=== PATIENT | female | born 1960 | race Caucasian/White ===

== ENCOUNTER → 2018-11-11 15:11 | Outpatient (CLI) | payer OTHER, SELFPAY ==
--- NOTE | 2018-11-11 15:24 | MM_ITS ---
PROCEDURE: MM DIG SCREENING MAMM BI W/CAD Patient Age:58Y CLINICAL INDICATION: SCREENING wall routine screening mammogram. No hormones but no new complaints. 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 R2 CAD reviewed. Additional axillary CC view bilateral FINDINGS: Dense breast tissue seen filling the central cone of breast bilaterally. Mammography is of decreased sensitivity within areas of dense tissue and with the dense slight heterogeneous fibroglandular tissue as seen here at central breast . However no new areas of concern are identified. No dominant or suspicious mass. No suspicious calcifications. If any palpable areas arise ultrasound could be useful complement/augment to mammography particularly in areas of increased breast density. Bilateral follow-up 1 year will be adequate and recommended IMPRESSION: Overall stable mammogram. No new areas of significant concern Dense breasts decrease sensitivity of mammography, but no new areas of significant concern identified. Follow-up in 1 year recommended BI-RAD Category: 2 Benign Finding(s) FOLLOW-UP: 1YR 1 Year Follow-up (A letter has been sent to the patient regarding results of the study.) Dictated by: Jeison Thompson MD 11/16/2018 15:22 Electronically signed by Jeison Thompson MD in [place] 11/16/2018 15:22
--- NOTE | 2018-11-11 15:25 | US_ITS ---
PROCEDURE: US THYROID CLINICAL INDICATION: THYROMEGLY COMPARISON: No exams were available for comparison FINDINGS: Right lobe: 1.1 x 3.7 x 1.0 centimetres. There are no nodules on the right side. Left lobe: In 0.9 x 3.2 x 1.1 centimeter. There are no nodules on the left side. Isthmus: 3.2 millimeters. Additional findings: The echogenic appearance of the thyroid tissue is normal. IMPRESSION: Normal exam. Dictated by: eHnok Hernández 11/11/2018 15:51 Electronically signed by Henok Hernández in [place] 11/11/2018 15:51
== END ==
PROVIDERS: PCP Family Medicine; Visit Provider Nurse Practitioner Family
DX: Z12.31 Encounter for screening mammogram for malignant neoplasm of breast (principal); E01.0 Iodine-deficiency related diffuse (endemic) goiter
CPT/HCPCS: 76536; 77067

== ENCOUNTER → 2019-12-06 07:48 | Outpatient (CLI) | payer OTHER, SELFPAY ==
--- NOTE | 2019-12-06 07:51 | MM_ITS ---
PROCEDURE: MM DIG SCREENING MAMM BI W/CAD Digital Breast Tomosynthesis Included CLINICAL INDICATION: SCREENING There is no personal or family history of breast cancer. 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 R2 CAD reviewed. FINDINGS: Moderate fibroglandular densities are seen in the central portions of both breast and the findings are fairly symmetrical bilaterally. There are a couple of tiny benign-appearing microcalcifications right breast. There is no suspicious lesion and no suspicious microcalcifications. IMPRESSION: Moderate breast density with no suspicious lesions seen BI-RAD Category: 2 Benign Finding(s) FOLLOW-UP: 1YR 1 Year Follow-up (A letter has been sent to the patient regarding results of the study.) Dictated by: Dr. Edil Sheldon MD 12/08/2019 09:31 Dr. Edil Sheldon MD in [place] 12/08/2019 09:31
== END ==
PROVIDERS: PCP Nurse Practitioner Family; Visit Provider Nurse Practitioner Family
DX: Z12.31 Encounter for screening mammogram for malignant neoplasm of breast (principal)
CPT/HCPCS: 77063; 77067

== ENCOUNTER → 2019-12-13 09:25 | Outpatient (CLI) | payer OTHER, SELFPAY ==
--- NOTE | 2019-12-13 09:28 | XR_ITS ---
PROCEDURE: XR DEXA AXIAL SKELETON CLINICAL HISTORY: OSTEOPOROSIS COMPARISON: No exams were available for comparison FINDINGS: The right hip BMD is 0.525 with a T-score of -2.9. The left hip BMD is 0.601 with a T-score of -2.2. The lumbar spine BMD is 0.707 with a T-score of -3.1. IMPRESSION: This patient is considered osteoporotic according to the World Health Organization criteria. Fracture risk is high. Treatment is advised. Based on these results a follow-up exam is recommended in 1 year. Dictated by: João Schaefer MD 12/14/2019 07:15 João Schaefer MD in [place] 12/14/2019 07:15
== END ==
PROVIDERS: PCP Nurse Practitioner Family; Visit Provider Nurse Practitioner Family
DX: Z13.820 Encounter for screening for osteoporosis (principal); Z78.0 Asymptomatic menopausal state
CPT/HCPCS: 77080

== ENCOUNTER 2020-04-01 12:26 | Emergency (ER) | payer OTHER, SELFPAY ==
[2020-04-01 12:30] VITALS: BP 167/91; PULSE 118; RESP 20; TEMP 37; O2SAT 100; BMI 23.3
--- NOTE | 2020-04-01 12:38 | XR_ITS ---
PROCEDURE: XR WRIST LT MIN 3V Referring Doctor: Alyse Vo Patient Age:59Y CLINICAL INDICATION: FALL on April 01, 2020 Pain wrist and 4 arm COMPARISON: No exams were available for comparison FINDINGS: Acute/recent fracture of the distal radius and ulnar styloid: Somewhat comminuted fracture distal radius. The fracture primarily seen transversing the distal radius metaphysis with fracture lines extending from this to articular surface distal radius. There is dorsal tilt and slight posterior displacement of the distal radial fracture fragment with resulting deformity evident at distal radius, and wrist there is mild foreshortening of the distal radius due to the fracture as well. There is also nondisplaced fracture transversing the base of the ulnar styloid. Additional tiny corticated fragment off the tip ulnar styloid may reflect previous injury or accessory ossicle The carpals appear intact. There may be some minor degenerative changes the distal navicular but no acute fracture involving carpals. The base of the metacarpals included and intact b . Bones well mineralized IMPRESSION: Fracture distal radius and ulnar styloid: . Comminuted fracture distal radius with notable dorsal tilt and mild dorsal displacement distal radial fracture fragmenta . Nondisplaced fracture transversing base of ulnar styloid Dictated by: Jeison Thompson MD 04/01/2020 20:30 Jeison Thompson MD in [place] 04/01/2020 20:30
--- NOTE | 2020-04-01 12:58 | HMH.EDUTC ---
[facility] [place] Clinical Impression: Distal radius fracture, left Qualifiers: Encounter type: initial encounter Fracture type: closed Fracture morphology: unspecified fracture morphology Qualified Code(s): S52.502A - Unspecified fracture of the lower end of left radius, initial encounter for closed fracture Disposition: Home, Self-Care Condition on Discharge: Good Instructions: Wrist Fracture, How To Perform RICE (Rest, Ice, Compress, Elevate), Ketorolac Additional Instructions: *RICE, Rest the extremity, Ice 15-20 minutes 3-4 times daily, Compress- wear the rojas wrap as discussed as much as possible to help reduce swelling and pain, Elevate the extremity when at rest *Rojas wrap/Orthoglass splint is for support and help control swelling, Be sure that is not to tight but not to loose either but do not remove *Elevate when resting *Toradol every 8 hours as needed for pain an inflammation. If need something more can take Tylenol in between doses of Toradol to help Immediately follow up with your family doctor for new or worsening of symptoms, or no noticeable improvement over the next 3-[address] Harrison's office on Friday for appointment Return if needed Straight to ER if any life threatening symptoms Prescriptions: Ketorolac Tromethamine [Toradol 10mg tablet] 10 mg PO Q8HP PRN #15 tab PRN Reason: Moderate Pain Transmission Status: Received by [id number] Referrals: Thea Ramos APRN [Primary Care Provider] - As needed Isaiah Harrison MD [Staff Physician] - As needed (Call office on Friday for appointment) Time of Disposition: 13:18 Medical Decision Making - Timothy Inquiry Pt receiving controlled substance: No Timothy was queried for this patient: No Vital Signs: 04/01/20 12:30 04/01/20 13:10 Temperature 98.6 F 98.6 F Temperature Source Oral Pulse Rate 118 H Pulse Rate [Right Brachial] 118 H Respiratory Rate 20 20 Blood Pressure 167/91 H Blood Pressure [Right Arm] 167/91 H Blood Pressure Mean [Right Arm] 116 Blood Pressure Source [Right Arm] Automatic Cuff Blood Pressure Position [Right Arm] Sitting 02 Sat by Pulse Oximetry 100 Oxygen Delivery Method Room Air Orders (Tests/Meds): ED MEDICATIONS Discontinued Medications Generic Name Dose Route Start Last Admin Trade Name Freq PRN Reason Stop Dose Admin Ketorolac Tromethamine 30 mg 04/01/20 13:13 Ketorolac 60mg/2ml Vial IM 04/01/20 13:14 ONCE ONE ORDERS Category Date Time Status XR wrist LT min 3V Stat Exams 04/01/20 12:38 Taken - Radiology Data #1 Image(s): Wrist Image Reviewed: Yes I reviewed the patient's radiology image Distal radial fracture, ? styloid process fracture ulna - Physician Consults Physician Consulted: Hunter Time: 12:55 Reason -: Orthopedic Eval/Care Comment/Response: Spoke with Dr Harrison and he viewed xrays Advised to place patient in sugar tong splint, RICE, pain medication and have her call the office on Friday for appointment Medical Decision Narrative: Medication discussed with pharmacy Patient denies any kidney problems States that she is able to take Motrin products but had rather take Tylenol Patient give prescription for Toradol and informed that she can take Tylenol and if she needs something stronger she can take the Toradol [facility] [place] - General Stated complaint: ao @ 1215 injury to Lt wrist Time Seen by Provider: 04/01/20 12:58 Mode of Arrival: Ambulatory Source of Information: Patient Limitations: No Limitations Description of Symptoms (Recalled from Triage Doc. 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 SWELLING AND DEFORMITY NOTED HEENT Symptoms (Recalled from RN notes): No Resp Symptoms (Recalled from RN notes): No Skin Symptoms (Recalled from RN notes): No MS Symptoms (Recalled from RN notes): No Functional Status (Recalled from RN notes): WNL - History of Present Illness Provider Complaint: Patien
[2020-04-01 13:10] VITALS: BP 167/91; PULSE 118; RESP 20; TEMP 37; O2SAT 100
== END 2020-04-01 13:25 | disposition home or self-care (01) ==
PROVIDERS: Emergency Provider Nurse Practitioner; PCP Nurse Practitioner Family
DX: S52.502A Unspecified fracture of the lower end of left radius, initial encounter for closed fracture (principal); W00.0XXA Fall on same level due to ice and snow, initial encounter; Y92.89 Other specified places as the place of occurrence of the external cause; Z88.2 Allergy status to sulfonamides
CPT/HCPCS: 29125; 73110; 96372; 99203; G0463

== ENCOUNTER → 2020-04-05 12:50 | Outpatient (CLI) | payer OTHER, SELFPAY ==
[2020-04-05 13:19] LABS: Basophils # 0.1 K/mm3 (0-0.2); Basophils % 0.8 % (0.1-2.0); Eosinophils # 0.1 K/mm3 (0.0-0.4); Eosinophils % 1.4 % (0.1-12.0); Hematocrit 36.2 % (37.0-47.0); Hemoglobin 11.5 g/dL (12.2-16.2); Lymphocytes # 2.3 K/mm3 (0.7-4.5); Lymphocytes % 23.8 % (10-50); Mean Corpuscular HGB Conc 31.8 g/dL (31.8-35.4); Mean Corpuscular Hemoglobin 30.6 pg (27.0-31.2); Mean Corpuscular Volume 96.3 fl (81-99); Mean Platelet Volume 7.4 fl (7.4-10.4); Monocytes # 0.6 K/mm3 (0.1-1.0); Monocytes % 5.6 % (1.7-9.3); Neutrophils # 6.7 K/mm3 (1.8-7.8); Neutrophils % 68.4 % (37.0-80.0); Platelet Count 332 K/mm3 (142-424); Red Blood Count 3.76 M/mm3 (4.20-5.40); White Blood Count 9.7 K/mm3 (4.8-10.8)
--- NOTE | 2020-04-05 13:19 | ECG_ITS ---
APPROVED REPORT Exam: Resting ECG HR:74 bpm ECG Measurements Heart Rate 74 AXES ID 120 P 1 QRSd 86 QRS 34 QT 390 T 33 QTc 432 Conclusion Normal sinus rhythm RSR' or QR pattern in V1 suggests right ventricular conduction delay Borderline ECG Electronically signed by : Chemo Lozada, 04/05/2020 17:46:03
[2020-04-05 13:47] LABS: Chloride 103 mmol/L (98-107); Sodium 138 mmol/L (136-145)
[2020-04-05 13:48] LABS: Potassium 4.4 mmoL/L (3.5-5.1)
[2020-04-05 13:50] LABS: Alanine Aminotransferase 27 U/L (12-78); Albumin Level 4.5 g/dl (3.5-5.0); Albumin/Globulin Ratio 1.5 (1.1-1.8); Alkaline Phosphatase 96 U/L (38-126); Anion Gap 11.4 mEq/L (5-15); Aspartate Amino Transferase 34 U/L (14-36); Bilirubin,Total 1.2 mg/dl (0.2-1.3); Blood Urea Nitrogen 15 mg/dl (7-17); Carbon Dioxide 28 mmol/L (22.0-30.0); Estimated Glomerular Filt Rate 73 ml/min (>60); GFR (African American) 88 ML/MIN (>60); Total Protein,Serum 7.5 g/dl (6.3-8.2)
[2020-04-05 13:51] LABS: Calcium 9.6 mg/dl (8.4-10.2); Glucose 100 mg/dl (74-100)
[2020-04-05 14:14] LABS: Coronavirus 19 IgG Antibody Negative (Negative); Coronavirus 19 IgM Antibody Negative (Negative)
== END ==
PROVIDERS: Visit Provider Orthopaedic Surgery
DX: Z01.818 Encounter for other preprocedural examination (principal); Z20.822 Contact with and (suspected) exposure to COVID-19; S52.502A Unspecified fracture of the lower end of left radius, initial encounter for closed fracture
CPT/HCPCS: 36415; 80053; 85025; 86328; 93005

== ENCOUNTER 2020-04-06 09:41 | Day surgery (SDC) | payer OTHER, SELFPAY ==
[2020-04-05 09:28] VITALS: BMI 23.8
[2020-04-06] VITALS (12 sets, daily range): BP systolic 124–160; BP diastolic 64–79; PULSE 77–95; RESP 15–18; TEMP 36.4–38; O2SAT 97–100
--- NOTE | 2020-04-06 10:55 | HMH.ANESCL ---
[facility] Anesthesia Checklist - Structural Data Admitted From: Home Planned Operative Procedure/s: orif l wrist Consent for Planned Operative Procedure(s) Verified: Yes - Additional verifications Anesthesia Reactions: No Hx Blood Transfusions: No Blood Transfusion Reaction: No - Airway Assessment C-Spine Mobility Assessed: Yes TMJ Mobility Assessed: Yes Dentition: Good Dentition - Neurological Assessment Level of Consciousness: Awake, Alert, Appropriate - Anesthesia Plan Anesthesia Risk discussed: Yes Anesthesia Plan: Verified ASA Class: I Anesthesia Type: General w/block - Preoperative Comments Pre-Operative Comments: explained supraclav block, pt agrees to proceed w block/general [facility] History I have reviewed the patient's past medical history: Yes Medical History: Reports:: Osteoporosis Denies:: Cancer, Diabetes Mellitus Type 1, Diabetes Mellitus Type 2, MRSA, Seizures *Have you ever received a pneumonia vaccine?: No *Have you received a flu vaccine this season?: Yes Other Medical History: Reports: Arthritis, Osteoporosis. Denies: Blood Transfusion Reaction Anesthesia experience/problems:: none Other Surgeries: Yes: No Previous Surgery Amputation: No Fractures: No - *Social History Last grade of school completed: High school graduate Smoking Status: Never smoker Alcohol Intake: never Substance Use Type: denies use *Occupational Status:: retired *Travel in the last 8 weeks: None Family Hx:: No significant family history
--- NOTE | 2020-04-06 13:25 | XR_ITS ---
PROCEDURE: XR WRIST LT 2V CLINICAL INDICATION: LT WRIST ORIF COMPARISON: No exams were available for comparison FINDINGS: Fluoroscopy time: 57 seconds Multiple images are submitted during ORIF the distal radial fracture. Volar bone plate is placed with multiple cortical screws with good alignment of the fracture fragments. IMPRESSION: Status post ORIF distal radial fracture with C-arm guidance Dictated by: João Schaefer MD 04/06/2020 15:27 João Schaefer MD in [place] 04/06/2020 15:27
--- NOTE | 2020-04-06 14:04 | P.PN_ITS ---
[facility] Anesthesia Record Part I Intake, IV Amount: 950 Estimated blood loss (mL): 5 Urine output (mL): 0 Blood Products used (#): none Blood Pressure: 124/70 SaO2: 99 Pulse Rate: 78 Respiratory Rate: 18 Temperature: 97.6 F Patient is:: Awake Stable to PACU at:: 14:05
--- NOTE | 2020-04-06 14:58 | HMH.ANESII ---
[facility] Anesthesia Record Part II Discharge Time: 14:34 Destination: Surgical Day Care (OP Surgery) PACU nurse assessment reviewed?: Yes Patient Condition:: Good Anesthesia Complications:: None Swallowing reflex intact?: Yes Cyanosis?: No Blood Pressure: 140/72 Pulse Rate: 85 Temperature: 97.8 F Mental Status: Alert & Oriented Pain level:: 0 Nausea and/or vomitting:: None Intake, IV Amount: 0
--- NOTE | 2020-04-06 15:55 | HMH.OPNOTE ---
Date of procedure: 04/06/20 Pre-op Diagnosis:: Closed, comminuted, displaced intra-articular fracture, LEFT distal radius Post-op Diagnosis:: Same Procedure performed:: Open reduction and internal fixation LEFT distal radius with volar locking plate. Surgeon:: Isaiah Harrison MD Heating Unit Mechanic(s):: Lydia Wolf SENIOR SOFTWARE TESTER:: Other (Agus Goyal) Anesthesia: GETA, regional (Supraclavicular nerve block) Estimated blood loss (mL): 5 Clinical Note:: Patient is a 59-year-old right-hand dominant female who sustained a closed displaced intra-articular fracture of the left distal radius when she slipped on ice and fell onto the outstretched left hand about 5 days ago. Evaluation including x-rays of the left wrist showed a closed, comminuted and displaced intra-articular fracture of the left distal radius. Following a detailed discussion with the patient and her sister about the management options including both nonsurgical and surgical, patient elected to proceed with surgical remediation. Please refer to my office note for full details. Operative findings:: Displaced, comminuted and unstable intra-articular fracture of the left distal radius as noted on the preoperative x-rays. Bone quality is good. Operative note:: After appropriate workup, the patient was brought to the hospital for surgery. On the day of surgery, I met the patient in the preoperative area and again discussed the details of the procedure, risks and benefits, alternatives and the expected outcomes. The complications discussed include but are not limited to infection, bleeding, injury to nerves, tendons and blood vessels, incisional scar (cosmesis), DVT/PE, malunion, nonunion/delayed union, loss of position, re-fracture, wrist/finger stiffness, CRPS (complex regional pain syndrome- pain, sensory and temperature changes, swelling and stiffness), painful/prominent hardware, loss of fixation/hardware failure, incomplete relief of pain, incomplete return of function, posttraumatic arthritis and likely need for further surgery in future and also the risks of anesthesia including heart attack, stroke, and . I have discussed how there is a small but real possibility of loss of use of the arm, loss of the limb or loss of life itself. I have also explained how additional surgery may be required if there are any complications or the fracture fails to heal. We have also discussed the postoperative pain management, recovery and rehabilitation, immobilization required, the likely need for physical therapy, the possibility of stiffness, chronic pain and we've also discussed the option of nonsurgical treatment. Patient expressed a full understanding and wished to proceed with surgery as planned. The operative site/side was marked and initialed by me. Patient understood the risks, agreed to proceed with surgery and no guarantees or assurances were given or implied. Patient was brought to the operating room and placed supine on the table. The left upper extremity was placed over an arm table. All the bony prominences were well padded. A general anesthesia was administered by the developer advocate. Prior to that patient also received a supraclavicular nerve block in the pre-anesthetic area. A well-padded tourniquet cuff was applied over the left upper arm. The left upper extremity was prepped and draped in the usual sterile fashion. A preprocedure timeout was performed as per hospital protocol. Administration of prophylactic IV antibiotics (2 g of IV Ancef) was confirmed prior to starting the procedure. The skin incision was marked over the distal forearm anteriorly for the extended FCR volar approach to distal radius. Limb was exsanguinated with Esmarch bandage and tourniquet was inflated to 250 mmHg. Please see the nursing notes for the total tourniquet time. Skin incision was made over the distal radius for an extended FCR anterior approach. The incision was deepened through the subcutaneous tissue and the FCR tendon was identified.
== END 2020-04-06 15:10 | disposition home or self-care (01) ==
PROVIDERS: PCP Nurse Practitioner Family; Visit Provider Orthopaedic Surgery
PROC: (CPT 25608; principal; 2020-04-06 11:15)
DX: S52.572A Other intraarticular fracture of lower end of left radius, initial encounter for closed fracture (principal); W00.0XXA Fall on same level due to ice and snow, initial encounter; Y92.018 Other place in single-family (private) house as the place of occurrence of the external cause; Z88.2 Allergy status to sulfonamides; Z79.899 Other long term (current) drug therapy
CPT/HCPCS: 25608; 73100; 76000; 96374; C1713; C1769; C1776; J2405

== ENCOUNTER → 2020-04-18 09:56 | Outpatient (CLI) | payer OTHER, SELFPAY ==
--- NOTE | 2020-04-18 10:01 | XR_ITS ---
PROCEDURE: XR WRIST LT MIN 3V CLINICAL INDICATION: sp ORIF LT wrist, dos 04/06/20 Follow-up surgery COMPARISON: CR XR WRIST LT MIN 3V from 04/01/2020 FINDINGS: There is a volar bone plate present distally with good alignment the distal radial fracture. Nondisplaced avulsion fracture involves the ulnar styloid process with good alignment. There is a cast in place. IMPRESSION: Good alignment status post ORIF distal radial fracture. Dictated by: João Schaefer MD 04/18/2020 17:42 João Schaefer MD in [place] 04/18/2020 17:42
== END ==
PROVIDERS: PCP Nurse Practitioner Family; Visit Provider Orthopaedic Surgery
DX: S52.502A Unspecified fracture of the lower end of left radius, initial encounter for closed fracture (principal)
CPT/HCPCS: 73110

== ENCOUNTER → 2020-05-02 08:52 | Outpatient (CLI) | payer OTHER, SELFPAY ==
--- NOTE | 2020-05-02 08:55 | XR_ITS ---
PROCEDURE: XR WRIST LT MIN 3V CLINICAL INDICATION: sp ORIF LT wrist, dos 04/06/20 COMPARISON: CR XR WRIST LT MIN 3V from 04/01/2020 CR XR WRIST LT MIN 3V from 04/18/2020 FINDINGS: The cast has been removed. There is good alignment status post ORIF distal radial fracture with volar bone plate in place. Fracture line is becoming less visible. The joint spaces are well-preserved. No significant degenerative/arthritic changes. No erosive changes evident. Other findings:None. IMPRESSION: Good alignment status post ORIF distal radial fracture Dictated by: João Schaefer MD 05/02/2020 09:08 João Schaefer MD in [place] 05/02/2020 09:08
== END ==
PROVIDERS: PCP Nurse Practitioner Family; Visit Provider Orthopaedic Surgery
DX: S52.532D Colles' fracture of left radius, subsequent encounter for closed fracture with routine healing (principal); S52.615D Nondisplaced fracture of left ulna styloid process, subsequent encounter for closed fracture with routine healing; Z09 Encounter for follow-up examination after completed treatment for conditions other than malignant neoplasm
CPT/HCPCS: 73110

== ENCOUNTER 2020-05-02 09:48 | Outpatient (RCR) | payer OTHER, SELFPAY | END 2020-05-02 10:45 | disposition home or self-care (01) | LOC: OT 09:48 | PROVIDERS: Visit Provider Orthopaedic Surgery | DX: S52.532D Colles' fracture of left radius, subsequent encounter for closed fracture with routine healing (principal) | CPT/HCPCS: 97763 ==

== ENCOUNTER → 2020-05-30 09:13 | Outpatient (CLI) | payer OTHER, SELFPAY ==
--- NOTE | 2020-05-30 09:17 | XR_ITS ---
PROCEDURE: XR WRIST LT MIN 3V CLINICAL INDICATION: s/p ORIF LT wrist; dos: 04/06/20 Follow-up wrist surgery COMPARISON: CR XR WRIST LT MIN 3V from 04/01/2020 CR XR WRIST LT MIN 3V from 04/18/2020 CR XR WRIST LT MIN 3V from 05/02/2020 FINDINGS: Status post ORIF distal radial fracture with volar bone plate. The fracture line is somewhat less prominent compared to the previous exam. There is good alignment. Ulnar styloid avulsion noted. There is mild diffuse osteopenia. IMPRESSION: Good alignment healing distal radial fracture. Dictated by: João Schaefer MD 05/30/2020 17:52 João Schaefer MD in [place] 05/30/2020 17:52
== END ==
PROVIDERS: PCP Nurse Practitioner Family; Visit Provider Orthopaedic Surgery
DX: S52.532D Colles' fracture of left radius, subsequent encounter for closed fracture with routine healing (principal)
CPT/HCPCS: 73110

== ENCOUNTER 2020-07-06 11:00 | Outpatient (RCR) | payer OTHER, SELFPAY ==
--- NOTE | 2020-05-08 12:10 | HMH.OTOPEV ---
OT Inpatient Evaluation Rehab OT Outpatient Eval Start: 05/08/20 11:58 Freq: Status: Active Protocol: Document 05/08/20 11:59 MERRYRADHA (Rec: 05/08/20 12:10 THOM [id number]) Electronically Signed By Ledy Vicente OT 05/08/20 11:59 Outpatient Therapy Subjective History Subjective History Patient is a 59-year-old right -hand dominant female who sustained a closed displaced intra-articular fracture of the left distal radius when she slipped on ice and fell onto the outstretched left hand about 5 days ago. Evaluation including x-rays of the left wrist showed a closed, comminuted and displaced intra-articular fracture of the left distal radius. Following a detailed discussion with the patient and her sister about the management options including both nonsurgical and surgical, patient elected to proceed with surgical remediation. Patient referred to skilled OP OT services for s/p ORIF left wrist/hand therapy. Patient was previously fited for left removable wrist brace which she has been wearing for past week. Patient verbalize pain during movement only. 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 Strength Symptom Type Ache Prior Functional Limitations None Current Functional Limitations Reaching,Lifting Symptom Description Intermittent Level of pain today (0-10) 0 Pain scale - at its best (0-10) 0 Pain scale - at its worst (0-10) 6 Wrist/Hand Eval Wrist Range of Motion Left Wrist Extension Active Range of Motion ( 0 degrees) Wrist Flexion Active Range of Motion ( 27 degrees) Wrist Radial Deviation Active Range of 10 Motion (degrees) Wrist Ulnar Deviation Active Range of 5 Motion (degrees) Forearm Supination Active Range of 65 Motion (degrees) Forearm Pronation Active Range of Motion 90 (degrees) Wrist Manual Muscle Testing Left Wrist Extension Strength Grade 2 Poor Wrist Flexion Str
--- NOTE | 2020-06-09 13:56 | HMH.RHREAS ---
Rehab Reassessment Rehab OP Re-assessment Start: 06/09/20 13:46 Freq: Status: Active Protocol: Document 06/09/20 13:46 THOM (Rec: 06/09/20 13:56 THOM [id number]) Electronically Signed By Ledy Vicente, OT 06/09/20 13:46 Rehab Re-assessment Subjective Subjective I can tell that my wrist is getting better. Objective Objective Notes Since SOC, Patient has participated in skilled OP OT services 1-2 times a week. Patient is currently 9 weeks out from therapy at this time from s/p Open reduction and internal fixation LEFT distal radius with volar locking plate. Patient has participated in gentle/ aggressive manual therapeutic stretching, thera act of AROM of wrist, thera exer with 1-2# DB for strengthening wrist/ therapy putty and modalites for pain management. Assessment Progress Assessment Progressing as Expected Assessment Notes Patient is making consistent progress towards goals since the SOC. Patient has made improvements with L UE AROM of wrist flex, wrist extension, UD, SUP and L odd bundle worker strength. AROM of L UE wrist Flex: 45 Ext: 30 RD:10 UD: 25 SUP: 70 Pro: 90 L hand odd bundle worker: 20# 5/10 pain at worst 2+/3- strength throughout of L wrist Patient goals met AROM of L UE flexion, extension, UD and L odd bundle worker strength Goals Not Met AROM of L UE RD and SUP Revised Goals AROM of L UE wrist flex: 55 wrist ext: [address]: 15 wrist UD: 20 wrist SUP:80 L odd bundle worker strength: 30# 4/10 pain at worst 2+ to 3-/5 strength throughout
--- NOTE | 2020-07-06 12:05 | HMH.RHREAS ---
Rehab Reassessment Rehab OP Re-assessment Start: 06/09/20 13:46 Freq: Status: Active Protocol: Document 07/06/20 11:53 MICHELJESSICA (Rec: 07/06/20 12:00 THOM [id number]) Electronically Signed By Ledy Vicente, OT 07/06/20 11:53 Rehab Re-assessment Subjective Subjective My hand is getting better. Objective Objective Notes Since SOC, Patient has participated in skilled OP OT services 1-2 times a week. Patient is currently 13 weeks out from therapy at this time from s/p Open reduction and internal fixation LEFT distal radius with volar locking plate. Patient has participated in gentle/ aggressive manual therapeutic stretching, thera act of AROM of wrist, thera exer with 1-2# DB and moderate resistance for computer technical support specialist and overall strengthening of the wrist/ therapy putty and modalites for pain management. Assessment Progress Assessment Progressing as Expected Assessment Notes Re-assessment on 06/09/20 AROM of L UE wrist Flex: 45 Ext: 30 RD:10 UD: 25 SUP: 70 Pro: 90 L hand computer technical support specialist: 20# 5/10 pain at worst 2+/3- strength throughout of L wrist Re-assessment on 07/06/20 AROM of L UE wrist flex: 50 wrist ext:40 RD:10 UD: 25 SUP:70 L hand computer technical support specialist:30# 3/10 pain at worst L wrist strength 4/5 throughout Patient goals met L UE AROM ext, L UE computer technical support specialist strength/overall wrist strength, 3/10 pain levels Goals Not Met AROM L UE wrist flex, RD, UD, SUP Revised Goals Re-assessment on 07/06/20 AROM of L UE
== END 2020-07-06 11:05 | disposition home or self-care (01) ==
LOC: OT 11:00
PROVIDERS: PCP Nurse Practitioner Family; Visit Provider Orthopaedic Surgery
DX: S52.532D Colles' fracture of left radius, subsequent encounter for closed fracture with routine healing (principal)
CPT/HCPCS: 97010; 97014; 97035; 97110; 97140; 97164; 97165; 97530; G0283

== ENCOUNTER → 2020-07-11 09:13 | Outpatient (CLI) | payer OTHER, SELFPAY ==
--- NOTE | 2020-07-11 09:15 | XR_ITS ---
PROCEDURE: XR WRIST LT MIN 3V CLINICAL INDICATION: SP orif LEFT WRIST dos 04/06/20 Follow-up surgery COMPARISON: No exams were available for comparison FINDINGS: Status post ORIF distal radius with a volar bone plate with good alignment similar to the previous exam. Ulnar styloid process fracture is noted with minimal radial displacement of the distal fracture fragment. There is generalized osteopenia. IMPRESSION: Good alignment status post ORIF distal radius. Dictated by: João Schaefer MD 07/11/2020 10:20 João Schaefer MD in [place] 07/11/2020 10:20
== END ==
PROVIDERS: PCP Nurse Practitioner Family; Visit Provider Orthopaedic Surgery
DX: Z09 Encounter for follow-up examination after completed treatment for conditions other than malignant neoplasm (principal); S52.532D Colles' fracture of left radius, subsequent encounter for closed fracture with routine healing
CPT/HCPCS: 73110

== ENCOUNTER → 2020-12-27 16:10 | Outpatient (CLI) | payer OTHER, SELFPAY ==
--- NOTE | 2020-12-27 16:14 | MM_ITS ---
PROCEDURE INFORMATION: Exam: MG Bilateral Screening 3D Mammography Exam date and time: 12/27/2020 4:14 PM Age: 60 years old Clinical indication: Encounter for screening mammogram for malignant neoplasm of breast . Frozen left shoulder TECHNIQUE: Imaging protocol: Bilateral screening tomosynthesis and 2D mammography including computer-aided detection (CAD) when performed. COMPARISON: 1. MG MM DIG SCREENING MAMM BI W/CAD 12/06/2019 8:05 AM 2. MG MM DIG SCREENING MAMM BI W/CAD 11/11/2018 3:43 PM FINDINGS: MAMMOGRAPHY: Breast composition: The breast tissue is heterogeneously dense, which may obscure small masses. Mass: None. Architectural distortion: None. Calcifications: No suspicious calcifications. Asymmetric density: None. Skin thickening: None. Axillary adenopathy: There is nonvisualization of the left pectoralis muscle and axilla due to the patient's inability to fully cooperate with the examination. The right pectoralis muscle and axilla are normal. IMPRESSION: No mammographic evidence of malignancy. Annual screening is recommended unless otherwise clinically indicated. ASSESSMENT: BI-RADS Category 1: Negative
== END ==
PROVIDERS: PCP Nurse Practitioner Family; Visit Provider Nurse Practitioner Family
DX: Z12.31 Encounter for screening mammogram for malignant neoplasm of breast (principal)
CPT/HCPCS: 77063; 77067

== ENCOUNTER → 2022-03-06 08:05 | Outpatient (CLI) | payer OTHER, SELFPAY ==
--- NOTE | 2022-03-06 08:11 | MM_ITS ---
PROCEDURE INFORMATION: Exam: MG Bilateral Screening 3D Mammography Exam date and time: 03/06/2022 8:09 AM Age: 61 years old Clinical indication: Screening mammogram TECHNIQUE: Imaging protocol: Bilateral Screening tomosynthesis and 2D mammography including computer-aided detection (CAD) when performed. COMPARISON: 1. MG MM DIG SCREENING MAMM BI W/CAD 12/27/2020 4:29 PM 2. MG MM DIG SCREENING MAMM BI W/CAD 12/06/2019 8:05 AM 3. MG MM DIG SCREENING MAMM BI W/CAD 11/11/2018 3:43 PM 4. MG DMSB DIG MAMM-SCREEN [place] 07/20/2012 3:34 PM FINDINGS: MAMMOGRAPHY: Breast composition: The breast is heterogeneously dense, which may obscure small masses. Mass: None. Architectural distortion: No new or suspicious architectural distortion. Calcifications: No new or suspicious calcifications are present Asymmetric density: No new or suspicious asymmetric density is present Skin thickening: None. Axillary adenopathy: None. IMPRESSION: No mammographic evidence of malignancy. Recommend annual screening mammography unless otherwise clinically indicated. ASSESSMENT: BI-RADS category 1: Negative
--- NOTE | 2022-03-06 08:11 | XR_ITS ---
FINAL REPORT TECHNIQUE: Bone densitometry calculations of the lumbar spine and hips were obtained. CLINICAL HISTORY: screening COMPARISON: 12/13/2019 FINDINGS: DEXA BONE DENSITY AXIAL SKELETON Using L1-4, the bone mineral density of the spine is 0.735 g/cm2, corresponding to T-score of -2.8. Previously measured 0.707 g/cm2, corresponding to T-score of -3.1. Using the left hip, the bone mineral density of the femoral neck is 0.631 g/cm2, corresponding to a T-score of -2.0. Previously measured 0.601 g/cm2, corresponding to T-score of -2.2. Using the right hip, the bone mineral density of the femoral neck is 0.604 g/cm2, corresponding to a T-score of -2.2. Previously measured 0.525 g/cm2, corresponding to T-score of -2.9. NOTE: T-score: Standard deviation compared with peak bone mass of young adult mean. *Following the recommendations of the International Society of Bone densitometry, classification of hip BMD is based on the lower of two T-scores; total hip or femoral neck. IMPRESSION: Diminished bone mineral density of the lumbar spine with a T-score at or below -2.5 which meets the World Health Organization criteria for osteopenia. Diminished bone mineral density of the hips consistent with osteopenia. FRAX not reported because: Some T-score so for spine total or hip total or femoral neck at or below -2.5. Patient is treated for osteoporosis. Reviewed, Interpreted and Dictated by Kinza Hein MD Transcribed by Maricruz Serrano Authenticated and [facility]
== END ==
PROVIDERS: PCP Nurse Practitioner Family; Visit Provider Nurse Practitioner Family
DX: Z12.31 Encounter for screening mammogram for malignant neoplasm of breast (principal); Z13.820 Encounter for screening for osteoporosis; Z78.0 Asymptomatic menopausal state
CPT/HCPCS: 77063; 77067; 77080

== ENCOUNTER → 2022-12-25 10:12 | Outpatient (CLI) | payer OTHER, SELFPAY ==
--- NOTE | 2022-12-25 10:21 | XR_ITS ---
FINAL REPORT CLINICAL HISTORY: cervicalgia COMPARISON: None FINDINGS: Three views of the cervical spine were obtained. There is no fracture present. There is minimal spondylolisthesis of C4 on C5. There are no significant degenerative changes. IMPRESSION: No acute process. Reviewed, Interpreted and Dictated by Navdeep Mosher MD Transcribed by Hilary Adler Authenticated and . [facility]
== END ==
LOC: RAD 10:13
PROVIDERS: PCP Nurse Practitioner Family; Visit Provider Nurse Practitioner Family
DX: M54.2 Cervicalgia (principal)
CPT/HCPCS: 72040

== ENCOUNTER → 2022-12-25 13:59 | Outpatient (CLI) | payer OTHER, SELFPAY ==
[2022-12-25 14:12] LABS: Basophils % 0.6 % (0.1-2.0); Eosinophils # 0.1 K/mm3 (0.0-0.4); Eosinophils % 0.9 % (0.1-12.0); Hematocrit 39.4 % (37.0-47.0); Hemoglobin 13.2 g/dL (12.2-16.2); Lymphocytes # 1.5 K/mm3 (0.7-4.5); Lymphocytes % 23.5 % (10-50); Mean Corpuscular HGB Conc 33.6 g/dL (31.8-35.4); Mean Corpuscular Hemoglobin 32.9 pg (27.0-31.2); Mean Corpuscular Volume 97.7 fl (81-99); Mean Platelet Volume 10.3 fl (7.4-10.4); Monocytes # 0.3 K/mm3 (0.1-1.0); Monocytes % 5.2 % (1.7-9.3); Neutrophils # 4.5 K/mm3 (1.8-7.8); Neutrophils % 69.7 % (37.0-80.0); Platelet Count 265 K/mm3 (142-424); Red Blood Count 4.03 M/mm3 (4.20-5.40); White Blood Count 6.5 K/mm3 (4.8-10.8)
[2022-12-25 14:49] LABS: Alanine Aminotransferase 28 U/L (12-78); Albumin Level 4.7 g/dl (3.5-5.0); Albumin/Globulin Ratio 1.5 (1.1-1.8); Alkaline Phosphatase 84 U/L (38-126); Aspartate Amino Transferase 36 U/L (14-36); Bilirubin,Total 0.7 mg/dl (0.2-1.3); Blood Urea Nitrogen 17 mg/dl (7-17); Calcium 9.7 mg/dl (8.4-10.2); Carbon Dioxide 27 mmol/L (22.0-30.0); Chloride 101 mmol/L (98-107); Cholesterol 230 mg/dl (140-200); Estimated Glomerular Filt Rate 56 ml/min (>60); GFR (African American) 68 ML/MIN (>60); Globulin 3.1 g/dL (1.3-3.2); Glucose 96 mg/dl (74-100); HDL Cholesterol 58 mg/dl (40-60); Sodium 139 mmol/L (136-145); Total Protein,Serum 7.8 g/dl (6.3-8.2); Triglycerides 125 mg/dl (30-150); VLDL Cholesterol 25 mg/dL (0-40)
[2022-12-25 15:00] LABS: Direct LDL Cholesterol 122.47 mg/dL (100-129)
[2022-12-25 15:05] LABS: 25-OH Vitamin D, Total 55.8 ng/mL (30-100)
[2022-12-25 15:20] LABS: Thyroid Stimulating Hormone 1.82 uIU/mL (0.465-4.68)
== END ==
LOC: LAB.DROPOF 14:00
PROVIDERS: PCP Nurse Practitioner Family; Visit Provider Nurse Practitioner Family
DX: R06.09 Other forms of dyspnea (principal); M81.0 Age-related osteoporosis without current pathological fracture; Z13.220 Encounter for screening for lipoid disorders; Z68.23 Body mass index [BMI] 23.0-23.9, adult; Z79.899 Other long term (current) drug therapy
CPT/HCPCS: 80053; 80061; 82306; 84443; 85025

== ENCOUNTER 2023-02-06 09:34 | Outpatient (CLI) | payer OTHER, SELFPAY ==
[2023-02-06] VITALS (8 sets, daily range): BP systolic 105–158; BP diastolic 53–85; PULSE 55–97; RESP 16; TEMP 36.3–36.4; O2SAT 96–99; BMI 23.2
--- NOTE | 2023-02-06 09:34 | CT_ITS ---
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 A noncontrast coronary calcium scan was performed. A CT attenuation threshold of 130 Hounsfield units (HU) was used for the detection of calcium in contiguous voxels of 1 sq mm in area to be counted as individual lesions. Bolus tracking in the ascending aorta with a threshold of 180 HU was performed. Immediately afterwards, ECG synchronized cardiac CT was then performed from the cardiac base to apex using retrospective gating with ECG tube current modulation. A total of 85 mL of Isovue 370 mg/mL contrast medium was administered at 5 mL/sec followed by a saline flush using a biphasic injection protocol. A tube voltage of 120 KVp was used. The patient received the following medications prior to the cardiac CT. 100 mg of oral metoprolol 10 mg of intravenous metoprolol 0.8 mg of sublingual nitroglycerin The average heart rate at the time of acquisition was 63 bpm and regular. Image Reconstruction Transaxial images were reconstructed at 0.67 mm slide thickness. Data was reviewed interactively on an advanced workstation capable of 2 and 3-dimensional displays in all conventional reconstruction formats, including multiplanar reformations, maximum intensity projections, curved multiplanar reformations, and volume rendered reconstructions. When applicable, selected routine images describing the relevant coronary anatomy and pathology were saved and sent to PACS. Complications None Technical Quality Overall image quality was good. Coronary artery opacification was adequate. Total DLP (Dose-Length Product) is 1119.4 mGy-cm. The reported value represents the total of one or more individual components during the CT acquisition of this date and at this time, and as such, the same value may appear in more than one CT report depending on the interpreting/reporting physicians. COMPARISON None FINDINGS CT Coronary Calcium Scoring LMA (Left Main Artery) = 0 LAD (Left Anterior Descending) = 0 LCX (Left Coronary Circumflex) = 0 RCA (Right Coronary Artery) = 0 Total Calcium Score = 0 using the AJ-130 method. The interpretation of the calcium heart score is based on the following continuum*: 0 = no calcified plaque detected (risk of coronary artery disease is very low ??? less than 5%) 1-10 = calcium detected in extremely minimal levels (risk of coronary diseases is still low ??? less than 10%) 11-100 = mild levels of plaque detected with certainty (mild or minimal narrowing of heart arteries is likely) 101-400 = definite,at least moderate levels of plaque detected (relatively high risk of a heart attack within 3-5 years) >401-999 = extensive levels of plaque detected (high risk of heart attack, high levels of vascular disease are present, high likelihood of at least one significant coronary narrowing) *The calcium heart score quantifies the burden of coronary calcification/plaque in the coronary arteries. The calcium heart score is not able to evaluate the presence or burden of non-calcified (i.e. soft) plaque. There is no identifiable calcification in the aortic valve, mitral annulus or mitral valve, pericardium, or myocardium. Coronary CT Angiography The coronary arterial system is right dominant. Quantitative Stenosis Grading: Left Main (LM): The left main originates normally from the left sinus of Valsalva. The LM trifurcates into the left anterior descending artery and left circumflex artery. The LM is patent with no evidence of atherosclerosis. Left Anterior Descending (LAD) and Diagonal Branches: The LAD gives off 2 diagonal branches. The LAD and its branches are patent with no evidence of atherosclerosis. There is a mid-LAD bridge present, measuing 4 mm in length and < 0.5 mm in depth. Ramus-intermedius (RI): The RI is patent. Left Circumflex (LCX) and Obtuse Marginals (OM): The LCX gives off 1 Obtuse Marginal (OM) branch. The LCX and its branches are patent with no evidence of atherosclerosis. Right Coronary Artery (RCA): The RCA originates normally from the right sinus of Valsalva. The RCA gives off a posterior descending artery (PDA) and posterolateral (PL) branches. The RCA and its branches are patent with no evidence of atherosclerosis. Non-Coronary Cardiac Findings: Analysis of the left ventricular (LV) structure and function was performed after 3-D reconstruction of the LV from axial images, with user-corrected automatic contouring for assessment of LV volumes and user-defined reconstruction from oblique planes for measurement of 3-D cardiac structure and function. LVEDV: 124 mL LVESV: 52 mL SV: 72.7 mL LVEF: 58.5 % -The left ventricle is normal in size with normal left ventricular systolic function. -There is no left atrial appendage filling defect. Two right pulmonary veins and two left pulmonary veins drain normally into the left atrium. -No pericardial thickening or calcification. -Central and branch pulmonary arteries in the [id number] are unremarkable. -Thoracic aorta within the visualized thoracic aortic-branches in the [id number] is unremarkable. Extracardiac Structures -Hiatal hernia is incidentally noted. IMPRESSION -No coronary calcification with an Agatston score = 0 using the AJ-130 method. -No evidence of significant flow-limiting atherosclerosis of the coronary arteries. -Mid-LAD bridge is present, measuing 4 mm in length and < 0.5 mm in depth. -CAD-RADS 0. Management recommendations per ACC/AHA guidelines*, as clinically appropriate. -Hiatal hernia is incidentally noted. *Recommendations: CAD RADS 0: Reassurance. Consider non-atherosclerotic causes of chest pain. CAD RADS 1: Consider non-atherosclerotic causes of chest pain. Consider preventive therapy and risk factor modification. CAD RADS 2: Consider non-atherosclerotic causes of chest pain. Consider preventive therapy and risk factor modification, particularly for patients with nonobstructive plaque in multiple segments. CAD RADS 3: Consider further functional testing. Consider symptom-guided anti-ischemic and preventive pharmacotherapy as well as risk factor modification per published guideline statements. CAD RADS 4A: Consider further functional testing or invasive coronary angiography with revascularization per published guideline statements. Consider symptom-guided anti-ischemic and preventive pharmacotherapy as well as risk factor modification per published guideline statements. CAD RADS 4B: Invasive coronary angiography recommended with revascularization per published guideline statements. Consider symptom-guided anti-ischemic and preventive pharmacotherapy as well as risk factor modification per published guideline statements. CAD RADS 5: Consider invasive angiography and/or viability assessment with revascularization per published guideline statements. Consider symptom-guided anti-ischemic and preventive pharmacotherapy as well as risk factor modification per published guideline statements. CRITICAL RESULT None COMMUNICATION Per this written report The coronary and cardiac findings of this CCTA were reviewed, reported, and signed by Braydon Beard MD ([employer]aster And Stucco Worker) Conclusion Electronically signed by : Beth Beard MD 02/11/2023 10:55:43
[2023-02-06] MEDS: METOPROLOL TARTRATE 50MG TABLET 100 MG PO (09:57)
[2023-02-06 10:14] LABS: Blood Urea Nitrogen 15 mg/dl (7-17); Carbon Dioxide 28 mmol/L (22.0-30.0); Chloride 103 mmol/L (98-107); Creatinine Clearance Estimated 52 mL/min (50-200); Estimated Glomerular Filt Rate 72 ml/min (>60); GFR (African American) 87 ML/MIN (>60)
[2023-02-06 10:15] LABS: Anion Gap 6.6 mEq/L (5-15); Calcium 8.8 mg/dl (8.4-10.2); Glucose 101 mg/dl (74-100); Potassium 3.6 mmoL/L (3.5-5.1); Sodium 134 mmol/L (136-145)
[2023-02-06] MEDS: METOPROLOL TARTRATE 5MG/5ML VIAL 5 MG IV ×2 (10:15→10:30)
[2023-02-06] MEDS: NITROGLYCERIN 0.4MG SL TABLET 0.800000000000000044 MG SL (10:30)
[2023-02-06] MEDS: SODIUM CHLORIDE 0.9% 10ML SYR (RAD ONLY) 10 ML IV (10:49)
[2023-02-06] MEDS: IOPAMIDOL-370 (76%);100ML BOTTLE 85 ML IV (10:49)
[2023-02-06] MEDS: 0.9 % SODIUM CHLORIDE 50 ML VIAL IV (10:49)
== END 2023-02-06 11:30 | disposition home or self-care (01) ==
PROVIDERS: PCP Nurse Practitioner Family; Visit Provider Physician Assistant
DX: R06.09 Other forms of dyspnea (principal); R94.31 Abnormal electrocardiogram [ECG] [EKG]; K21.9 Gastro-esophageal reflux disease without esophagitis; Z82.49 Family history of ischemic heart disease and other diseases of the circulatory system
CPT/HCPCS: 75571; 75574; 80048; Q9967

== ENCOUNTER 2024-01-20 13:43 | Outpatient (CLI) | payer MEDICARE, BC, SELFPAY ==
[2024-01-20 13:37] LABS: Basophils # 0.1 K/mm3 (0-0.2); Basophils % 0.9 % (0.1-2.0); Eosinophils # 0.1 K/mm3 (0.0-0.4); Eosinophils % 0.8 % (0.1-12.0); Hematocrit 41.2 % (37.0-47.0); Hemoglobin 13.7 g/dL (12.2-16.2); Lymphocytes # 1.4 K/mm3 (0.7-4.5); Lymphocytes % 18.1 % (10-50); Mean Corpuscular HGB Conc 33.2 g/dL (31.8-35.4); Mean Corpuscular Hemoglobin 31.1 pg (27.0-31.2); Mean Corpuscular Volume 93.7 fl (81-99); Mean Platelet Volume 8.4 fl (7.4-10.4); Monocytes # 0.4 K/mm3 (0.1-1.0); Monocytes % 5.1 % (1.7-9.3); Neutrophils # 5.7 K/mm3 (1.8-7.8); Platelet Count 322 K/mm3 (142-424); Red Cell Distribution Width 12.9 % (11.5-17.5); White Blood Count 7.6 K/mm3 (4.8-10.8)
[2024-01-20 15:29] LABS: HIV (1&2) Antibody Rapid NONREACTIVE (NONREACTIVE)
[2024-01-20 15:47] LABS: 25-OH Vitamin D, Total 44.1 ng/mL (30-100)
[2024-01-20 16:19] LABS: Alanine Aminotransferase 22 U/L (12-78); Albumin Level 4.7 g/dl (3.5-5.0); Albumin/Globulin Ratio 1.8 (1.1-1.8); Alkaline Phosphatase 85 U/L (38-126); Aspartate Amino Transferase 33 U/L (14-36); Bilirubin,Total 0.7 mg/dl (0.2-1.3); Blood Urea Nitrogen 19 mg/dl (7-17); Calcium 9.7 mg/dl (8.4-10.2); Carbon Dioxide 28 mmol/L (22.0-30.0); Chloride 103 mmol/L (98-107); Chol/HDL Ratio 4.3 (1-3.5); Cholesterol 244 mg/dl (140-200); Estimated Glomerular Filt Rate 56 ml/min (>60); GFR (African American) 67 ML/MIN (>60); Globulin 2.6 g/dL (1.3-3.2); Glucose 86 mg/dl (74-100); HDL Cholesterol 57 mg/dl (40-60); Magnesium 2.1 mg/dl (1.6-2.3); Sodium 139 mmol/L (136-145); Total Protein,Serum 7.3 g/dl (6.3-8.2); Triglycerides 180 mg/dl (30-150); VLDL Cholesterol 36 mg/dL (0-40)
[2024-01-20 16:30] LABS: Direct LDL Cholesterol 147.91 mg/dL (100-129)
[2024-01-20 16:49] LABS: Thyroid Stimulating Hormone 3.73 uIU/mL (0.465-4.68)
[2024-01-20 17:08] LABS: Vitamin B12 852 pg/mL (239-931)
[2024-01-20 18:49] LABS: Ferritin 61.2 ng/ml (11.1-264)
[2024-01-21 09:22] LABS: HCV Ab Non Reactive (Non Reactive)
== END 2024-01-20 23:59 | disposition home or self-care (01) ==
LOC: LAB.DROPOF 13:43
PROVIDERS: PCP Nurse Practitioner Family; Visit Provider Nurse Practitioner Family
DX: M81.0 Age-related osteoporosis without current pathological fracture (principal); Z11.59 Encounter for screening for other viral diseases; D64.9 Anemia, unspecified; K21.9 Gastro-esophageal reflux disease without esophagitis; Z11.4 Encounter for screening for human immunodeficiency virus [HIV]; E78.5 Hyperlipidemia, unspecified; R94.31 Abnormal electrocardiogram [ECG] [EKG]
CPT/HCPCS: 80053; 80061; 82306; 82607; 82728; 83735; 84443; 85025; 86803; 87389

== ENCOUNTER 2024-01-28 09:05 | Outpatient (CLI) | payer MEDICARE, BC, SELFPAY ==
--- NOTE | 2024-01-28 09:06 | XR_ITS ---
FINAL REPORT TECHNIQUE: Bone densitometry calculations of the lumbar spine and left hip were obtained. CLINICAL HISTORY: osteoporosis COMPARISON: 03/06/2022 FINDINGS: Using L1-4, the bone mineral density of the spine is 0.761 g/cm2, corresponding to T-score of -2.6. Using the left hip, the bone mineral density of the femoral neck is 0.703 g/cm2, corresponding to a T-score of -1.3. NOTE: T-score: Standard deviation compared with peak bone mass of young adult mean. *Following the recommendations of the International Society of Bone Densitometry, classification of hip BMD is based on the lower of two T-scores; total hip or femoral neck. IMPRESSION: Osteoporosis: Lowest T-score is at or below -2.5. This patient's T-score meets the World Health Organization criteria for osteoporosis. Diminished bone mineral density of the left femoral neck is compatible with the category of osteopenia. Reviewed, Interpreted and Dictated by Kinza Hein MD Transcribed by Padmini Burr Authenticated and [facility]
== END 2024-01-28 23:59 | disposition home or self-care (01) ==
LOC: RAD 09:06
PROVIDERS: PCP Orthopaedic Surgery; Visit Provider Nurse Practitioner Family
DX: M81.0 Age-related osteoporosis without current pathological fracture (principal)
CPT/HCPCS: 77080

== ENCOUNTER 2024-03-01 09:31 | Outpatient (CLI) | payer MEDICARE, BC, SELFPAY ==
[2024-03-01 09:31] VITALS: BP 149/81; PULSE 78; RESP 18; TEMP 36.7; O2SAT 98
[2024-03-01] MEDS: DENOSUMAB 60 MG/ML SYRINGE SUBCUT (09:45)
== END 2024-03-01 09:48 | disposition home or self-care (01) ==
LOC: INF 09:32
PROVIDERS: PCP Nurse Practitioner Family; Visit Provider Nurse Practitioner Family
DX: M81.0 Age-related osteoporosis without current pathological fracture (principal)
CPT/HCPCS: 96372; J0897

== ENCOUNTER 2024-03-11 10:06 | Outpatient (CLI) | payer MEDICARE, BC, SELFPAY ==
--- NOTE | 2024-03-11 10:07 | MM_ITS ---
PROCEDURE INFORMATION: Exam: MG Bilateral Screening 3D Mammography Exam date and time: 03/11/2024 10:11 AM Age: 63 years old Clinical indication: Screening examination. TECHNIQUE: Imaging protocol: Bilateral Screening tomosynthesis and 2D mammography including computer-aided detection (CAD) when performed. COMPARISON: 1. MG MM DIG SCREENING MAMM BI W/CAD 03/06/2022 8:09 AM 2. MG MM DIG SCREENING MAMM BI W/CAD 12/27/2020 4:29 PM FINDINGS: MAMMOGRAPHY: Breast composition: The breasts are heterogeneously dense, which may obscure small masses. Mass: None. Architectural distortion: None. Calcifications: No suspicious calcifications. Asymmetric density: None. Skin thickening: None. Axillary adenopathy: None. IMPRESSION: No mammographic evidence of malignancy. Annual screening is recommended unless otherwise clinically indicated. ASSESSMENT: BI-RADS Category 1: Negative.
== END 2024-03-11 23:59 | disposition home or self-care (01) ==
LOC: RAD 10:07
PROVIDERS: PCP Orthopaedic Surgery; Visit Provider Nurse Practitioner Family
DX: Z12.31 Encounter for screening mammogram for malignant neoplasm of breast (principal)
CPT/HCPCS: 77063; 77067

== ENCOUNTER 2024-04-30 13:41 | Outpatient (CLI) | payer MEDICARE, BC, SELFPAY ==
[2024-04-30 14:06] LABS: Alanine Aminotransferase 22 U/L (12-78); Albumin Level 4.9 g/dl (3.5-5.0); Albumin/Globulin Ratio 1.8 (1.1-1.8); Alkaline Phosphatase 70 U/L (38-126); Anion Gap 11.6 mEq/L (5-15); Aspartate Amino Transferase 32 U/L (14-36); Blood Urea Nitrogen 20 mg/dl (7-17); Calcium 9.5 mg/dl (8.4-10.2); Carbon Dioxide 27 mmol/L (22.0-30.0); Chloride 103 mmol/L (98-107); Chol/HDL Ratio 4.6 (1-3.5); Cholesterol 253 mg/dl (140-200); Estimated Glomerular Filt Rate 56 ml/min (>60); GFR (African American) 67 ML/MIN (>60); Globulin 2.8 g/dL (1.3-3.2); Glucose 92 mg/dl (74-100); HDL Cholesterol 55 mg/dl (40-60); Potassium 4.6 mmoL/L (3.5-5.1); Sodium 137 mmol/L (136-145); Total Protein,Serum 7.7 g/dl (6.3-8.2); Triglycerides 161 mg/dl (30-150); VLDL Cholesterol 32 mg/dL (0-40)
== END 2024-04-30 23:59 | disposition home or self-care (01) ==
LOC: LAB.DROPOF 13:41
PROVIDERS: PCP Nurse Practitioner Family; Visit Provider Nurse Practitioner Family
DX: E78.5 Hyperlipidemia, unspecified (principal)
CPT/HCPCS: 80053; 80061

== ENCOUNTER 2024-08-30 09:07 | Outpatient (CLI) | payer MEDICARE, BC, SELFPAY ==
--- OUTSIDE RECORDS SUMMARY | 2024-08-30 09:14 | XMS_ITS | Clinical Summary ---
Author Organization Healthcare Address [address] [place] [address] Care Team Providers Care Children'S Librarian Name Role Phone Unavailable Primary Care Provider Unavailabl e Social History Tobacco Use Types Packs/Day Years Used Date Smoking Tobacco: Never Assessed Comments Unknown Sex and Gender Information Value Date Recorded Sex Assigned at Not on file Legal Sex Female 6:14 PM EDT Gender Identity Not on file Sexual Orientation Not on file Last Filed Vital Signs Vital Sign Reading Time Taken Comments Blood Pressure - - Pulse - - Temperature - - Respiratory Rate - - Oxygen Saturation - - Inhaled Oxygen Concentration - - Weight 59.4 kg (131 lb) 07/15/2012 8:26 AM EDT Height 157.5 cm (5' 2 ) 07/15/2012 8:26 AM EDT Body Mass Index 23.96 07/15/2012 8:26 AM EDT Plan of Treatment Not on file
[2024-08-30] MEDS: DENOSUMAB 60 MG/ML SYRINGE SUBCUT (09:18)
[2024-08-30 09:20] VITALS: BP 152/79; PULSE 59; RESP 18; O2SAT 95
== END 2024-08-30 09:20 | disposition home or self-care (01) ==
LOC: INF 09:08
PROVIDERS: PCP Nurse Practitioner Family; Visit Provider Nurse Practitioner Family
DX: Z51.11 Encounter for antineoplastic chemotherapy (principal)
CPT/HCPCS: 96372; J0897